=== PATIENT | male | born 1960 | race Caucasian/White ===

== ENCOUNTER → 2018-04-05 | Outpatient (CLI) | payer OTHER ==
[~2018-04-05] MED LIST: AMPH30TA2 PO; ASPI-983 PO; CANA1TAB4 PO; CARV25TA PO; HYDR12.56 PO; HYDR25TA4 PO; LAMO150T2 PO; LISI40TA PO; OMG1KC PO; PRAV40TA2 PO; TICA90TA PO
== END ==
LOC: CARD 09:22
PROVIDERS: ATTEND Internal Medicine Cardiovascular Disease
DX: R07.89 Other chest pain (principal); I25.10 Atherosclerotic heart disease of native coronary artery without angina pectoris; I11.0 Hypertensive heart disease with heart failure; I50.9 Heart failure, unspecified; E11.9 Type 2 diabetes mellitus without complications; E78.2 Mixed hyperlipidemia; I08.0 Rheumatic disorders of both mitral and aortic valves
CPT/HCPCS: 93306

== ENCOUNTER → 2018-08-14 | Outpatient (CLI) | payer OTHER ==
[~2018-08-14] MED LIST changes: +CATHETER FLUSH 10 ML SYR IV PRN; +REGADENOSON 0.4 MG/5 ML SYR (LEXISCAN) IV ONE
[2018-08-14 13:11] VITALS: BP 141/77
--- NOTE | 2018-08-14 17:24 | STRESS TEST ---
DATE OF SERVICE: 08/14/2018 EXERCISE AND LEXISCAN MYOVIEW STRESS REPORT REFERRING PHYSICIAN: Gerardo Lepe MD and Camelia Hook APRN. Baseline heart rate is 57. Baseline blood pressure is 141/77. Baseline EKG is sinus rhythm with poor R-wave progression, nonspecific T-wave abnormality. In summary, the patient was injected with 9.78 mCi of technetium-99 Myoview and the resting images were obtained. Then, the patient started exercising with a baseline heart rate, blood pressure and EKG mentioned above. He exercised for 3 minutes then test was terminated and converted to Lexiscan Myoview stress test due to the EKG abnormality and the incomplete left bundle branch block, given 0.4 mg of Lexiscan followed by 28.7 mCi of technetium-99 Myoview. Throughout the test, there were no EKG changes. The resting and stress images were reviewed and compared in the short axis, horizontal long axis, and vertical long axis views. Review of the images showed diaphragmatic attenuation with fixed defect at the mid to apical inferior wall and inferolateral wall with no significant reversibility. SSS is 6, SDS 0, TID value 0.93. On the gated images, the left ventricle appeared to be prominent with hypokinesia at the apex and inferoapical segment with calculated ejection fraction 47%. CONCLUSION: 1. Fair exercise tolerance. Stress test was terminated due to the abnormal EKG with incomplete left bundle branch block and converted to Lexiscan Myoview stress test. 2. The patient tolerated Lexiscan well. 3. Fixed defect at the true apex and inferoapical segment and inferolateral wall. 4. No significant ischemia was noted. 5. Normal left ventricular size with hypokinesia at the true apex and inferoapical segment with calculated ejection fraction 47%. Job ID: [id number] DocumentID: [id number] Dictated Date: 08/14/2018 16:48:18 Director Of Strategic Partnerships Date: 08/14/2018 17:24:04 Dictated By: EMY MENDOSA MD
== END ==
LOC: CARD 11:46
PROVIDERS: ATTEND Internal Medicine Cardiovascular Disease
DX: I25.10 Atherosclerotic heart disease of native coronary artery without angina pectoris (principal); I11.0 Hypertensive heart disease with heart failure; I50.9 Heart failure, unspecified; R07.89 Other chest pain; E78.2 Mixed hyperlipidemia; R06.02 Shortness of breath
CPT/HCPCS: 78452; 93017

== ENCOUNTER → 2021-07-06 | Outpatient (CLI) | payer OTHER ==
[~2021-07-06] VITALS: Ht 172 cm; Wt 78.0 kg
[~2021-07-06] MED LIST changes: +ASPI-1238 PO; -ASPI-983 PO; -CATHETER FLUSH 10 ML SYR IV PRN; +CATHETER FLUSH 10 ML SYR IVP PRN; -LAMO150T2 PO; +LAMO150T4 PO; -LISI40TA PO; +LISI40TA9 PO
[2021-07-06 13:54] VITALS: BP 138/85
--- NOTE | 2021-07-06 15:44 | Cardiology Stress Test Report ---
Stress Test Report Date of Procedure/Referring: Date of Procedure: Jul 06, 2021 Zenobia Burgos Admitting Physician Gerardo Lepe MD Indications: CAD Baseline Heart Rate: 69 Baseline Blood Pressure: Blood Pressure Systolic: 138 Blood Pressure Diastolic: 85 Baseline Vitals Vital Signs Date Time Temp Pulse Resp B/P (MAP) Pulse Ox O2 Delivery O2 Flow Rate FiO2 07/06/21 13:54 69 138/85 (102) 98 Baseline EKG: Baseline EKG: NSR Summary After explaining the procedure to the patient, he signed a consent and then brought to the stress nuclear laboratory. Patient received 0.4 mg Lexiscan for stress test, ECG, heart rate and blood pressure were monitored continuously. Resting and stress dose of radio tracer were injected, imaging was acquired and reviewed in short axis, horizontal long axis and vertical long axis views. TID: 0.95 SSS: 6 SDS: 4 EF: 33 1. Patient tolerated Lexiscan well 2. Diaphragmatic attenuation with reversible ischemia involving the inferior wall and inferoseptum 3. Normal left ventricular size with diffuse hypokinesia, ejection fraction 33% EMY MENDOSA MD Jul 06, 2021 15:44
== END ==
LOC: CARD 10:00
PROVIDERS: ATTEND Physician Assistant
DX: I08.0 Rheumatic disorders of both mitral and aortic valves (principal); I10 Essential (primary) hypertension; I25.10 Atherosclerotic heart disease of native coronary artery without angina pectoris
CPT/HCPCS: 78452; 93017; 93306; A9502

== ENCOUNTER 2021-07-20 13:00 | Day surgery (SDC) | payer OTHER ==
[2021-07-20] VITALS (10 sets, daily range): BP systolic 113–142; BP diastolic 66–89
[~2021-07-20] VITALS: Ht 172.7 cm; Wt 76.5 kg
[2021-07-20 11:35] LABS: HEMATOCRIT 50 % (40-54); HEMOGLOBIN 16.3 g/dL (13.3-17.7); MEAN CORPUSCULAR HEMOGLOBIN 30 pg (25-34); MEAN CORPUSCULAR HGB CONC 33 g/dL (32-36); MEAN CORPUSCULAR VOLUME 92 fL (80-99); MEAN PLATELET VOLUME 11.2 fL (9.0-12.2); PLATELET COUNT 239 10^3/uL (130-400); WHITE BLOOD COUNT 7.8 10^3/uL (4.3-11.0)
[2021-07-20 11:37] LABS: BILIRUBIN,URINE NEGATIVE (NEGATIVE); CLARITY,URINE CLEAR; COLOR,URINE YELLOW; GLUCOSE, URINE (UA) 3+ (NEGATIVE); KETONES,URINE NEGATIVE (NEGATIVE); LEUKOCYTE ESTERASE ,URINE NEGATIVE (NEGATIVE); NITRITE,URINE NEGATIVE (NEGATIVE); PROTEIN,URINE NEGATIVE (NEGATIVE)
--- NOTE | 2021-07-20 11:38 | Diagnostic Imaging Report ---
INDICATION: Chest pain COMPARISON: 01/12/2018 FINDINGS: Single view the chest demonstrates stable cardiac enlargement. Chronic interstitial changes are present. There is no pulmonary edema, pneumothorax or effusion. No focal infiltrate seen. Osseous structures are age-appropriate. IMPRESSION: No acute cardiopulmonary findings. Dictated by: Dictated on workstation # [id number]
[2021-07-20 11:45] LABS: INR 0.9 (0.8-1.4)
[2021-07-20 11:55] LABS: ALBUMIN 4.3 GM/DL (3.2-4.5); BILIRUBIN,TOTAL 0.6 MG/DL (0.1-1.0); CALCIUM 9.6 MG/DL (8.5-10.1); CREATININE SERUM 1.18 MG/DL (0.60-1.30); POTASSIUM 3.9 MMOL/L (3.6-5.0); TOTAL PROTEIN 6.7 GM/DL (6.4-8.2)
[2021-07-20 11:56] LABS: BACTERIA,URINE TRACE /HPF; WBC,URINE 0-2 /HPF
[~2021-07-20 13:00] MED LIST changes: -CATHETER FLUSH 10 ML SYR IVP PRN; +FENO54TA PO; +HEParin (CATH LAB) 2,000 ML IV ONE; +HYDR-3923 PO; +LIDOCAINE 1% INJ 20 ML VIAL ONE; +LINA5TAB PO; +NF-LOVAZAC PO; +NS IV 1000 ML 1,000 ML IV SCH; +NS IV 1000 ML 1,000 ML ONE; -REGADENOSON 0.4 MG/5 ML SYR (LEXISCAN) IV ONE; +SACU1TAB7 PO
[2021-07-20] MEDS ORDERED: HEParin 1000 UNIT/ML (10ML VIAL) FOR BOLUS ONE (14:41)
[2021-07-20] MEDS ORDERED: MIDAZOLAM 5 MG/5 ML (VERSED) VIAL ONE (14:41)
[2021-07-20] MEDS ORDERED: fentaNYL INJ 100 MCG/2 ML AMP ONE (14:41)
[2021-07-20] MEDS ORDERED: VERAPAMIL 5 MG/2 ML (CALAN) VIAL IV ONE (14:41)
[2021-07-20] MEDS ORDERED: NITRO DRIP 25000 MCG/D5W 250 ML IV ONE (14:42)
--- NOTE | 2021-07-20 15:22 | Discharge Inst-Post CATH ---
Discharge Inst-CATH/EP Problems Reviewed?: Yes Post Cardiac Cath/EP D/C Inst Follow Up/Plan Appointment with Dr. Beckwith's office in 2 to 4-week <b>CARDIAC CATH/EP PROCEDURE DISCHARGE INSTRUCTIONS</b> ACTIVITY * Go Home directly and rest. * Limit activity of the leg (or wrist if it was used) for 7 days including aero bics, swimming, jogging, bicycling, etc. * Restrict stair-climbing for 7 days if possible, if not, climb up with your non-cath leg, then bring together on the same step. * Avoid lifting, pushing, pulling or excessive movement of the affected extremit y for 7 days. * Customary sexual activity may be resumed after 2 days-use caution not to use a position that strains or causes pain to the affected extremity. * No driving for 24 hours. * NO SMOKING. * Avoid straining for bowel movements for 7 days. * Gentle walking on level ground is allowed. * Returning to work will depend on the type of procedure and the results. Your doctor will discuss this with you. CALL YOUR DOCTOR FOR ANY OF THE FOLLOWING: *If bleeding from the puncture site occurs- Apply gentle pressure to site with clean cloth and call your doctor or EMS. * If a knot or lump forms under the skin, increases in size, or causes pain. * If bruising appears to be worsening or moving further down your leg instead of disappearing. * Temperature above 101 F. CARE OF YOUR GROIN INCISION; * Bruising or purple discoloration of the skin near the puncture site is common. * You may shower only, no bathtub bathing for 5 days. Be careful to avoid slipping as your leg may feel stiff. * If a closure device was used on your femoral artery, please see the attached guide regarding care of the device and your leg. * Leave dressing on FOR 24 hours. CARE OF YOUR WRIST INCISION; * Bruising or purple discoloration of the skin near the puncture site is common. * You may shower. * DO NOT submerge wrist. * Leave dressing on FOR 24 hours. EMY BECKWITH MD July 20, 2021 15:22
--- NOTE | 2021-07-20 15:23 | Conscious Sedation/ASA ---
Conscious Sedation Pre-Proced Time 14:00 ASA Score 3 For ASA 3 and 4: Consider anesthesia and medical clearance. Also, for patients with a history of failed moderate sedation consider anesthesia. Airway Lungs Heart ASA score ASA 1: a normal healthy patient ASA 2: a patient with a mild systemic disease (mid diabetes, controlled hypertension, obesity x ASA 3: a patient with a severe systemic disease that limits activity (angina, COPD, prior Myocardial infarction) ASA 4: a patient with an incapacitating disease that is a constant threat to life (CHF, renal failure) ASA 5: a moribund patient not expected to survive 24 hrs. (ruptured aneurysm) ASA 6: a declared brain- patient whose organs are being harvested. For emergent operations, add the letter E after the classification Mallampati Classification Grade 3 Sedation Plan Analgesia, Amnesia, Plan communicated to team members, Discussed options with patient/fam, Discussed risks with patient/fam The patient is an appropriate candidate to undergo the planned procedure, sedation, and anesthesia. The patient immediately re-assessed prior to indication. EMY MENDOSA MD July 20, 2021 15:23
--- NOTE | 2021-07-20 15:25 | Cardiac Cath Report ---
Cardiac Cath Report Physician (s)/Rehabilitation Counsellor (s) Physician EMY MENDOSA MD Pre-Procedure Diagnosis Pre-Procedure Diagnosis: Coronary artery disease, chest pain Post-Procedure Note Procedure Start Date: July 20, 2021 Name of Procedure: Left heart catheterization Findings/Procedure Note PROCEDURE NOTE: 61-year-old gentleman with history of coronary artery disease, hypertension, hyperlipidemia and cardiomyopathy. Had an abnormal stress test, scheduled for cardiac catheterization possible PTCA. After explaining the procedure to the patient, all pros and cons were explained, all questions were answered. The patient signed the consent and then he was placed on the cardiac catheterization laboratory. Groin was prepped SL fashion local anesthesia was used. Sheath placed in the right radial artery, [place] catheter was advanced and engaged the right and left coronary system, multiple views were obtained then it was prolapsed to the left ventricular cavity, pre ssure was measured, pullback LV to aorta was done. At the end of the procedure the sheath was removed. Vascular band was used FINDINGS: Hemodynamics LV 122/18, end-diastolic pressure of 18 Aorta 125/70 mean of 92 ANATOMY: Left Main is free of obstructive disease Left Anterior Descending has mild disease, patent stent in the mid LAD nonobstructive disease Left Circumflex has mild to moderate disease distally nonobstructive disease Right Coronary Artery has mild disease nonobstructive disease LV Gram was done showing normal left ventricular size, ejection fraction 50%, apex was not well visualized CONCLUSION: 1. Mild coronary artery disease nonobstructive disease, patent stent in the mid LAD 2. Normal left ventricular size and systolic function ejection fraction 50%, the apex was not well visualized DISCUSSION AND RECOMMENDATION: Continue with medical therapy, no intervention is warranted Anesthesia Type: Conscious Sedation Estimated blood loss (mL): 10 ml Contrast Amount: 45 ml Total Radiation Dose: 201 mGy Post-Procedure Diagnosis Post-operative diagnosis: Chest pain Coronary artery disease Hypertension Hyperlipidemia EMY MENDOSA MD July 20, 2021 15:25
[2021-07-20] MEDS ORDERED: NS IV 1000 ML 1,000 ML IV SCH (15:30)
== END 2021-07-20 18:00 | disposition home or self-care (01) ==
LOC: CATH 13:00
PROVIDERS: ATTEND Internal Medicine Cardiovascular Disease
DX: I25.10 Atherosclerotic heart disease of native coronary artery without angina pectoris (principal); I10 Essential (primary) hypertension; E78.5 Hyperlipidemia, unspecified; R94.39 Abnormal result of other cardiovascular function study; I25.5 Ischemic cardiomyopathy; R55 Syncope and collapse; I65.23 Occlusion and stenosis of bilateral carotid arteries; E11.9 Type 2 diabetes mellitus without complications; F32.A Depression, unspecified; F90.9 Attention-deficit hyperactivity disorder, unspecified type; Z79.84 Long term (current) use of oral hypoglycemic drugs; Z79.899 Other long term (current) drug therapy
CPT/HCPCS: 71045; 80053; 80061; 81000; 85027; 85610; 85730; 87081; 93005; 93458; C1894; 36415